=== PATIENT | female | born 1930 | race Caucasian/White ===

== ENCOUNTER 2018-04-18 08:22 | Emergency (ER) | payer OTHER ==
[~2018-04-18] VITALS: Ht 160 cm; Wt 78.9 kg
[~2018-04-18 08:22] MED LIST: CIPRO500 MG PO; PEPCID40 MG PO; ZOFRAN4 MG PO
[2018-04-18] MEDS ORDERED: METFORMIN HCL500 MG (08:46)
[2018-04-18] MEDS ORDERED: FOSINOPRIL SODI10 MG (08:46)
[2018-04-18] MEDS ORDERED: SYNTHROID50 MCG (08:46)
== END 2018-04-18 11:29 | disposition home or self-care (01) ==
LOC: ER 08:22
DX: K59.09 Other constipation (principal); M54.5 Low back pain